=== PATIENT | female | born 1965 | race Caucasian/White ===

== ENCOUNTER 2019-01-06 12:57 | Emergency (ER) | payer MEDICARE, MEDICAID, SELFPAY ==
[2019-01-06 12:59] VITALS: BP 161/96; PULSE 83; RESP 17; TEMP 37.3; O2SAT 96; BMI 32.9
--- NOTE | 2019-01-06 13:21 | RAD_ITS ---
STUDY: X-RAY - ACUTE ABDOMINAL SERIES REASON FOR EXAM: Female, 53 years old. Headaches. Shortness of breath. TECHNIQUE: Single view of the chest. Supine, and erect view(s) of the abdomen were obtained. COMPARISON: None. FINDINGS: The lungs are clear and expanded. Normal size heart. Normal mediastinum and froy. Normal visualized pulmonary arteries. Normal visualized aortic arch and descending thoracic aorta. There is a non-specific bowel gas pattern. Moderate sized hiatal hernia. Normal visualized osseous structures. RAD/Acute Abdomen Inc Chest IMPRESSION: Moderate sized hiatal hernia. Electronically Signed: Franklin Ken, at 15:05 EDT , Service support ,
--- NOTE | 2019-01-06 13:22 | CT_ITS ---
STUDY: CT BRAIN WITHOUT CONTRAST REASON FOR EXAM: Female, 53 years old. One-year history of headaches. RADIATION DOSAGE (If Supplied By Facility): CTDIvol = ( 44.99 ) mGy, DLP = ( 796.11 ) mGycm TECHNIQUE: Transaxial CT imaging of the brain was performed without administration of intravenous contrast material. Individualized dose optimization techniques were used for this CT. COMPARISON: No relevant priors. FINDINGS: Normal soft tissue structures. Normal calvarium. Normal size ventricles and extra-axial spaces for the patient's age. Normal white matter tracts of the cerebral hemispheres. Normal basal ganglia and thalami. Normal brainstem. Normal cerebellum. There is no intracranial hemorrhage. There are no findings of an acute ischemic infarction. Normal visualized paranasal sinuses. CT/Brain/Head without Contrast IMPRESSION: Normal unenhanced CT scan of the brain. Electronically Signed: Franklin Ken, at 15:15 EDT , Service support ,
[2019-01-06] MEDS: 0.9% Normal Saline 1,000 ML 1000 ML IV (13:48)
[2019-01-06] MEDS: Ondansetron 4 MG/2 ML Vial IV (13:49)
[2019-01-06] MEDS: Ketorolac 30 MG/ML Syringe IV (13:49)
[2019-01-06 14:01] LABS: Absolute Lymphocyte Count 2.08 X10^3/ul (0.83-4.51); Absolute Neutrophil Count 7.3 X10^3/uL (2.0-7.7); Basophil# 0.05 X10^3/uL; Basophil% 0.5 % (0-1); Eosinophil# 0.05 X10^3/uL; Eosinophils% 0.5 % (0-5); Hematocrit 41.6 % (37-47); Hemoglobin 13.9 g/dl (12.0-15.0); Lymphocyte # 2.08 X10^3/ul (4.0); Lymphocyte % 20.8 % (19-41); Mean Corp Hgb Conc 33.4 g/gl (32-36); Mean Corpuscular Hgb 27.1 pg (27.0-32.0); Mean Corpuscular Volume 81.1 fL (81-99); Mean Platelet Vol. 10.1 fl (6.2-12.0); Monocyte# 0.51 X10^3/uL; Monocyte% 5.1 % (0-10); Neutrophil # 7.28 X10^3/uL (2.7-7.7); Platelet Count 253 K/mm3 (150-450); RBC Distribution Width CV 12.7 % (11.6-14.6); RBC Distribution Width SD 37.4 fl (35.1-43.9); Red Blood Count 5.13 M/mm3 (4.2-5.4)
[2019-01-06 14:02] LABS: POSITIVE COUNT NO; POSITIVE DIFFERENTIAL NO; POSITIVE MORPHOLOGY NO
[2019-01-06 14:17] LABS: AST(SGOT) 27 U/L (15-37); Alanine Aminotransfer ALT/SGPT 29 U/L (13-56); Albumin, Serum 4.2 g/dL (3.2-5.0); Alkaline Phosphatase 107 U/L (45-117); Anion Gap 6 (5-15); BUN 19 mg/dL (7-18); BUN/Creat Ratio 16.2 RATIO (10-20); Calcium,Total 9.1 mg/dL (8.5-10.1); Chloride 106 mmol/L (98-107); Creatinine, Serum 1.17 mg/dL (0.55-1.02); EST Glomerular Filtration Rate 51 mL/min (>60); Est Glom Filt Rate - Afr Amer 62 mL/min (>60); Estimated Creatinine Clearance 66.19 ml/min; Glucose 87 mg/dL (74-106); Potassium 3.3 mmol/L (3.5-5.1); Protein, Total 8.2 g/dL (6.4-8.2); Sodium Level 138 mmol/L (136-145)
--- NOTE | 2019-01-06 15:21 | ED.VISSUMM ---
- ER Visit Summary Date of Service: 01/06/19 Chief Complaint: Headache History of Present Illness: The patient is a [address] edwards. She reports that she has a headache that began today. It is a dull pain and that is in the occipital. It is 10 out of 10 at worst and 4-10 currently. Is worsened by movement or bending over. Is relieved by Rajni back and body. She has had nausea without vomiting. She does complain of photophobia. She denies any vision changes. No numbness or weakness. Patient reports that she has had a cough for the past 2 weeks that is nonproductive. She denies any fever or chills. She has had upper abdominal pain for a long period of time that is unchanged. She reports has been nauseated, but has not vomited. No diarrhea. No melena or hematochezia. Physical Examination: Vitals: Stable. Afebrile. General: Well-nourished and well-developed. Head: Normocephalic atraumatic. Neck: Supple, no lymphadenopathy. No JVD. Nontender. Cardiovascular: Regular rate and rhythm. No murmurs. Respiratory: No respiratory distress. Clear to auscultation bilaterally. Abdominal: Soft, mild epigastric tenderness to palpation, nondistended, normal bowel sounds. No guarding, rebound, or peritoneal signs. Back: Nontender. Extremities: Nontender, no edema. Skin: Normal color, no rash. Neurologic: Alert and oriented ?3. Cranial nerves II through XII are intact. Normal strength and sensation. Psych: Flat affect. Test Results: Abdominal x-ray shows nonspecific bowel gas pattern with a moderate sized hiatal hernia. CT brain is normal. CBC is more for 7 neutrophils 73. Liver panel is normal. Chem-7 is marked potassium 3.3, BUN 19, creatinine 1.17. Emergency Department Course and Treatment: Patient was treated with Toradol and Zofran. She is resting comfortably. Treatment Plan: Patient be discharged instructions follow up with his primary care physician for further evaluation of her headache. She is also given the name of Dr. Patino, who is articulation officer, for further evaluation and potential treatment of her hiatal hernia. Return to the emergency department for any worsening symptoms. Disposition: To home in improved and stable condition. Impression: 1. Hiatal hernia. 2. Cephalgia. This note was generated with [employer] dictation software. It may contain incorrect words, spelling, and punctuation that were not noted in review of the chart prior to signing ED Disposition - Plan for ED Patient: Disposition: Home or Assisted Living Instructions: What Is a Hiatal Hernia?, ED Cephalgia Unspecified Referrals: Jeanine Akins NP-C [Primary Care Provider] - 3-5 Days if not improving Cali Patino MD [STAFF PHYSICIAN] - As Needed
[2019-01-06 15:30] VITALS: PULSE 87; RESP 17; O2SAT 97
== END 2019-01-06 15:32 | disposition home or self-care (01) ==
LOC: ED 14:10
PROVIDERS: Emergency Provider Emergency Medicine; Family Provider Nurse Practitioner Family; PCP Nurse Practitioner Family
DX: R51 Headache (principal); K44.9 Diaphragmatic hernia without obstruction or gangrene; F31.9 Bipolar disorder, unspecified; Z79.899 Other long term (current) drug therapy; Z72.0 Tobacco use
CPT/HCPCS: 70450; 74022; 80053; 85025; 96361; 96374; 96375; 99284; J7030; A4216; J2405

== ENCOUNTER 2019-01-15 11:07 | Emergency (ER) | payer MEDICARE, MEDICAID, SELFPAY ==
[2019-01-15 11:08] VITALS: BP 146/93; PULSE 97; RESP 16; TEMP 36.8; O2SAT 96; BMI 33.2
--- NOTE | 2019-01-15 11:17 | VDLE_ITS ---
Reason For Study: Pain RLE RIGHT LEFT GSV is normal. CFV is compressible, spontaneous, phasic, CFV is compressible, spontaneous, phasic, competent, and demonstrates normal competent and demonstrates normal augmentation. augmentation. FV is compressible, spontaneous, phasic, competent and demonstrates normal augmentation. POP V is compressible, spontaneous, phasic, competent and demonstrates normal augmentation. T/P Trunk is compressible. PTV is compressible. RT PerV is compressible. Hypoechoic, Non vascular structure noted Rt Pop Fossa measuring 2.32cm x 1.01cm. Procedure Exam performed portable in ED. A preliminary report was called and/or faxed to Dr. House. Interpretation Summary Deep veins of the right lower extremity are patent and compressible segmentally. There is no evidence of right lower extremity deep vein thrombosis. Valvular competence appears intact within the proximal deep venous system on the right . The right greater saphenous vein appears patent and compressible segmentally. A non-vascular, hypoechoic structure is noted in the right popliteal space, measuring 2.32 cm x 1.01 cm. This probably represents a popliteal cyst. Clinical correlation is advised. Ordering Physician: Caleb House Referring Physician: Jeanine Akins Performed By: Brianna Rivas RDCS, RVT
--- NOTE | 2019-01-15 11:37 | ED.DCSUM_ITS ---
- ER Visit Summary Date of Service: 01/15/19 Chief Complaint: Leg swelling History of Present Illness: The patient is a 53 F presents to the emergency department for right lower extremity swelling. The patient states she had a mechanical fall in October. She slipped on ice on her porch. She struck the ba ck of her knee. She states that she is having difficulty with any since. However, over the past 2 weeks, she is noted some swelling of her leg. She denies any chest pain. She denies any dyspnea. She did discuss this with her primary care who sent her in for further evaluation for an ultrasound. The patient is otherwise been in her normal state of health. She denies any fevers or chills. She has no history of blood clot. Physical Examination: Vital signs reviewed General: Well-nourished, well-developed Head: Normocephalic, atraumatic Eyes: Pupils equal and reactive, extraocular muscles intact Neck, supple, no lymphadenopathy Heart: Regular rate and rhythm Respiratory: No distress, clear bilaterally Abdomen: Soft, nontender, nondistended, no peritoneal signs Back: Nontender Extremities: Nontender, no edema, no cords Skin: Normal color no rash Neuro: Alert and oriented, no focal or lateralizing deficits Test Results: [] Emergency Department Course and Treatment: The patient symptoms do seem to be coming more from her knee. However, given her history I did obtain an ultrasound. There is no evidence of DVT. The patient is also on Eliquis so my suspicion for clot is very low. Ultrasound does demonstrate a hypoechoic nonvascular structure in the popliteal fossa that is most consistent with a Lovelace's cyst. She will be placed in an Edmar wrap. She was given a short course of anti-inflammatories. She will be given outpatient orthopedic follow-up as needed. She will be discharged home and is comfortable with this plan of care. Treatment Plan: [] Disposition: Discharge Impression: 1. Right knee strain This note was generated with [employer] dictation software. It may contain incorrect words, spelling, and punctuation that were not noted in review of the chart prior to signing ED Disposition - Plan for ED Patient: Instructions: ED Sprain Knee Prescriptions: Naproxen [Naprosyn] 500 mg PO BID PRN #20 tab Referrals: Tina Ramírez DO [STAFF PHYSICIAN] -
[2019-01-15 12:19] VITALS: BP 141/89; PULSE 78; RESP 19; O2SAT 99
== END 2019-01-15 12:31 | disposition home or self-care (01) ==
PROVIDERS: Emergency Provider Emergency Medicine; Family Provider Internal Medicine; PCP Internal Medicine
DX: S83.91XA Sprain of unspecified site of right knee, initial encounter (principal); W00.9XXA Unspecified fall due to ice and snow, initial encounter; Y93.9 Activity, unspecified; Y92.008 Other place in unspecified non-institutional (private) residence as the place of occurrence of the external cause; Z79.01 Long term (current) use of anticoagulants; Z79.899 Other long term (current) drug therapy
CPT/HCPCS: 93971; 99282

== ENCOUNTER 2019-02-13 19:38 | Emergency (ER) | payer MEDICARE, MEDICAID, SELFPAY ==
[2019-02-13 19:40] VITALS: BP 129/79; PULSE 73; PULSE 75; RESP 18; TEMP 36.3; O2SAT 97; O2SAT 98; BMI 34.2
--- NOTE | 2019-02-13 20:17 | CT_ITS ---
STUDY: CT BRAIN WITHOUT CONTRAST REASON FOR EXAM: Female, 53 years old. Headache and dizziness. RADIATION DOSAGE (If Supplied By Facility): CTDIvol = ( 44.99 ) mGy, DLP = ( 812.98 ) mGycm TECHNIQUE: Transaxial CT imaging of the brain was performed without administration of intravenous contrast material. Multiplanar reformations are submitted for interpretation. Individualized dose optimization techniques were used for this CT. COMPARISON: CT of the head dated January 06, 2019. FINDINGS: Normal soft tissue structures. Normal calvarium. Normal size ventricles and extra-axial spaces for the patient's age. Normal white matter tracts of the cerebral hemispheres. Normal basal ganglia and thalami. Normal brainstem. Normal cerebellum. There is no intracranial hemorrhage. There are no findings of an acute ischemic infarction. Normal visualized paranasal sinuses. CT/Brain/Head without Contrast IMPRESSION: Normal unenhanced CT scan of the brain. Electronically Signed: Yuly Molina MD at 20:48 EDT , Service support ,
--- NOTE | 2019-02-13 21:56 | ED.DCSUM_ITS ---
- ER Visit Summary Date of Service: 02/13/19 Chief Complaint: Head pain History of Present Illness: The patient is a 53 F who states for the past several days she has had frontal facial pressure. She also has experienced some ear pressure and sharp pain occasionally feels like it goes from the left ear through her brain to the right. She notes it also generalized headache. She denies any known trauma to the head. She is on Eliquis for prior DVT and states she has not missed any doses. She has some clear rhinorrhea. She notes that she has been sneezing. She is on Singulair for asthma well as using a nasal spray for allergies. Physical Examination: Afebrile vital signs stable Gen: Well-nourished well-developed Head: Normocephalic atraumatic Eyes: Perrl EOMI ENT: TMs clear clear rhinorrhea bluish turbinates moist mucous membranes Neck: Supple no lymphadenopathy no JVD nontender CVS: Regular rate rhythm no murmurs normal S1-S2 Respiratory: No distress clear to auscultation bilaterally chest nontender Abdomen: Soft nontender nondistended normal bowel sounds no masses Back: Nontender Extremity: Nontender no edema Skin: Normal color no rash Neuro: alert orientated ?3 CN II-XII intact normal strength sensation Psych: Normal affect normal mood Test Results: CT brain negative Emergency Department Course and Treatment: I suspect this is probably a sinusitis related to environment. Currently heavy, pollen counts. In addition to her nasal spray will also add in Zyrtec. She is to follow-up with her doctor if not improving Impression: 1. Sinusitis This note was generated with [employer] dictation software. It may contain incorrect words, spelling, and punctuation that were not noted in review of the chart prior to signing ED Disposition - Plan for ED Patient: Disposition: Home or Assisted Living Instructions: ED Sinusitis No Abx Prescriptions: Cetirizine HCl [Zyrtec] 10 mg PO DAILY #14 cap Referrals: Dylan Madrigal MD [Primary Care Provider] - 1 Week if not improving
[2019-02-13 22:10] VITALS: BP 124/60; PULSE 62; RESP 18; O2SAT 94
== END 2019-02-13 22:10 | disposition home or self-care (01) ==
PROVIDERS: Emergency Provider Emergency Medicine; Family Provider Internal Medicine; PCP Internal Medicine
DX: J32.9 Chronic sinusitis, unspecified (principal); J45.909 Unspecified asthma, uncomplicated; F31.9 Bipolar disorder, unspecified; K21.9 Gastro-esophageal reflux disease without esophagitis; Z86.718 Personal history of other venous thrombosis and embolism; Z79.01 Long term (current) use of anticoagulants; Z79.899 Other long term (current) drug therapy; Z72.0 Tobacco use
CPT/HCPCS: 70450; 99282

== ENCOUNTER 2019-03-09 16:50 | Emergency (ER) | payer MEDICARE, MEDICAID, SELFPAY ==
[2019-03-09 16:50] VITALS: BP 141/87; PULSE 82; RESP 18; TEMP 36.6; O2SAT 96; BMI 32.8
--- NOTE | 2019-03-09 17:34 | CT_ITS ---
STUDY: CT BRAIN WITHOUT CONTRAST REASON FOR EXAM: Female, 53 years old. Headache RADIATION DOSAGE (If Supplied By Facility): CTDIvol = ( 44.99 ) mGy, DLP = ( 779.24 ) mGycm TECHNIQUE: Transaxial CT imaging of the brain was performed without administration of intravenous contrast material. Individualized dose optimization techniques were used for this CT. COMPARISON: 01/06/2019, 02/13/2019. FINDINGS: Normal soft tissue structures. Normal calvarium. No definite change, but there is suggestion of very subtle low-attenuation in the left occipital lobe when compared to the right as seen on axial image 16 and coronal image 73. Again, the appearance is also present on prior studies and is unlikely to be acute but recommend further evaluation with contrast-enhanced MRI. Also unchanged previous exams is the possibility of mild diffuse chronic white matter disease which could also be evaluated with MRI. Normal size ventricles and extra-axial spaces for the patient's age. Normal basal ganglia and thalami. Normal brainstem. Normal cerebellum. There is no intracranial hemorrhage. There are no findings of an acute ischemic infarction. Normal visualized paranasal sinuses. CT/Brain/Head without Contrast IMPRESSION: No definite change or acute abnormality, but there may be chronic white matter disease that is unusual for age and may be more pronounced in the left occipital lobe, stable but suggest further evaluation with MRI. Electronically Signed: Francisco Ray MD at 18:18 EDT , Service support ,
[2019-03-09] MEDS: Ondansetron 4 MG/2 ML Vial IV (19:02)
[2019-03-09] MEDS: Ketorolac 15 MG/ML Vial IV (19:02)
[2019-03-09 19:05] VITALS: BP 142/85; PULSE 62; RESP 16; O2SAT 99
--- NOTE | 2019-03-09 19:36 | ED.DEP ---
ED Disposition - Plan for ED Patient: Instructions: ED Cephalgia Unspecified Referrals: Dylan Madrigal MD [Primary Care Provider] -
--- NOTE | 2019-03-09 19:46 | ED.DCSUM_ITS ---
- ER Visit Summary Date of Service: 03/09/19 Chief Complaint: Headache History of Present Illness: The patient is a 53 F presenting with headache. Patient has had headache for several months. She has had intermittent gradual onset headaches. She states she feels like her body is deflated and she is floating in the air. She has history of traumatic brain injury, bipolar disorder, and protein S deficiency. She is on Eliquis. She denies trauma. Denies fever. Denies numbness or weakness. Denies other complaints. She denies suicidal ideation. Physical Examination: Vitals are stable. Patient is afebrile. Alert no acute distress. HEENT exam is unremarkable. Neck is supple. No meningismus Lungs are clear and equal bilaterally. Heart is regular rate and rhythm. Abdomen is soft nontender nondistended. Extremities are unremarkable. Skin is warm and dry. No focal neurologic deficit. Remainder of exam is unremarkable. Emergency Department Course and Treatment: CT head shows no definite change or acute abnormality, but there may be chronic white matter disease that is unusual for age and may be more pronounced in the left occipital lobe, stable but suggest further evaluation with MRI. Patient was given Toradol IV. On reevaluation, she states her headache has resolved. Patient is advised of CT findings and she will follow-up with Dr. Madrigal. She is advised to return to ED for worsening complaints. Disposition: Discharge home Impression: Headache, resolved This note was generated with [employer] dictation software. It may contain incorrect words, spelling, and punctuation that were not noted in review of the chart prior to signing ED Disposition - Plan for ED Patient: Instructions: ED Cephalgia Unspecified Referrals: Dylan Madrigal MD [Primary Care Provider] -
[2019-03-09 19:59] VITALS: BP 121/81; PULSE 67; RESP 16; O2SAT 97
== END 2019-03-09 20:00 | disposition home or self-care (01) ==
PROVIDERS: Emergency Provider Emergency Medicine; Family Provider Internal Medicine; PCP Internal Medicine
DX: R51 Headache (principal); F31.9 Bipolar disorder, unspecified; D68.59 Other primary thrombophilia; Z87.820 Personal history of traumatic brain injury; Z79.01 Long term (current) use of anticoagulants; Z79.899 Other long term (current) drug therapy
CPT/HCPCS: 70450; 96374; 96375; 99283; A4216; J2405

== ENCOUNTER 2019-03-17 12:23 | Emergency (ER) | payer MEDICARE, MEDICAID, SELFPAY ==
[2019-03-17] VITALS (9 sets, daily range): BP systolic 128–160; BP diastolic 80–91; PULSE 80–95; RESP 15–20; TEMP 36.8; O2SAT 97–100; BMI 33.3
--- NOTE | 2019-03-17 12:51 | ED.VISSUMM ---
- ER Visit Summary Date of Service: 03/17/19 Chief Complaint: Body shutting down History of Present Illness: The patient is a 53 F and it is difficult to obtain history because of a suspected mental health issue. It sounds like the patient thinks her body is shutting down. She said this has been an ongoing issue. She said she has 100s of sensors that were implanted in her brain and body when she was a child. She says she is able to monitor them with a [employer] pacer interrogator device. She also makes some comments about bipolar disorder. She is denying any suicidal or homicidal thoughts. Nothing seemed to bring this on or make it worse. She has had multiple visits to the ED over the last couple months for various complaints. Physical Examination: Afebrile vital signs unremarkable. Thoughts are disorganized. Thought content includes delusions and paranoia. Patient denies suicidal or homicidal thoughts. She is oriented to person and place. Head and neck unremarkable. HEENT exam unremarkable. Heart regular. Lungs clear. Abdomen soft. Skin intact. Test Results: Labs and urine testing are pending. Will check tox and alcohol levels. Emergency Department Course and Treatment: Patient presents with paranoid and delusional thoughts. She is disorganized and disordered. I believe she will need inpatient care. I checked screening labs and testing. Patient will have psych precautions and will be evaluated by crisis. Work-up was all fairly unremarkable. She has signs of urinary tract infection and was treated with Macrobid. While I do believe she needs treatment for UTI, she is not septic. I do not believe her behavior or mental status changes are a result of the UTI. Crisis is evaluating the patient. [place] slip was completed by me. Patient is medically cleared for care at a psychiatric facility. Treatment Plan: As above Disposition: Transfer pending crisis evaluation Impression: 1. Psychosis 2. UTI This note was generated with [employer] dictation software. It may contain incorrect words, spelling, and punctuation that were not noted in review of the chart prior to signing ED Disposition - Plan for ED Patient: Referrals: Dylan Madrigal MD [Primary Care Provider] -
--- NOTE | 2019-03-17 12:54 | ED.DCSUM_ITS ---
- ER Visit Summary Date of Service: 03/17/19 Chief Complaint: Body shutting down History of Present Illness: The patient is a 53 F and it is difficult to obtain history because of a suspected mental health issue. It sounds like the patient thinks her body is shutting down. She said this has been an ongoing issue. She said she has 100s of sensors that were implanted in her brain and body when she was a child. She says she is able to monitor them with a [employer] pacer interrogator device. She also makes some comments about bipolar disorder. She is denying any suicidal or homicidal thoughts. Nothing seemed to bring this on or make it worse. She has had multiple visits to the ED over the last couple months for various complaints. Physical Examination: Afebrile vital signs unremarkable. Thoughts are disorganized. Thought content includes delusions and paranoia. Patient denies suicidal or homicidal thoughts. She is oriented to person and place. Head and neck unremarkable. HEENT exam unremarkable. Heart regular. Lungs clear. Abdomen soft. Skin intact. Test Results: Labs and urine testing are pending. Will check tox and alcohol levels. Emergency Department Course and Treatment: Patient presents with paranoid and delusional thoughts. She is disorganized and disordered. I believe she will need inpatient care. I checked screening labs and testing. Patient will have psych precautions and will be evaluated by crisis. Work-up was all fairly unremarkable. She has signs of urinary tract infection and was treated with Macrobid. While I do believe she needs treatment for UTI, she is not septic. I do not believe her behavior or mental status changes are a result of the UTI. Crisis is evaluating the patient. [place] slip was completed by me. Patient is medically cleared for care at a psychiatric facility. Treatment Plan: As above Disposition: Transfer pending crisis evaluation Impression: 1. Psychosis 2. UTI This note was generated with [employer] dictation software. It may contain incorrect words, spelling, and punctuation that were not noted in review of the chart prior to signing ED Disposition - Plan for ED Patient: Referrals: Dylan Madrigal MD [Primary Care Provider] -
--- NOTE | 2019-03-17 13:16 | ED.RN ---
PT STATES I HAVE BODY STIMULATORS ALL OVER INSIDE HER BODY AND THEY AREN'T WORKING SO MY ORGANS ARE SHUTTING DOWN.
--- NOTE | 2019-03-17 13:23 | CM.ED ---
SOCIAL WORK DISCUSSED CASE WITH NURSING AND DR. HERRERA. PATIENT TO BE EVALUATED BY CRISIS ONCE MEDICALLY CLEARED. CALL TO CRISIS TO UPDATE ON PATIENT, SPOKE WITH CHARISSE. CRISIS TO EVAL ONCE LABS ARE BACK AND PATIENT IS MEDICALLY CLEARED. DALY CHAMBERS, RECOVERY MANAGER, AUTO BODY SERVICE MECHANIC.
[2019-03-17 13:28] LABS: Bacteria 0 SEEN /hpf (None Seen); Mucous, Urine 0 SEEN /hpf (<or=2+); Red Blood Cells-Urine 0 SEEN /hpf (0-5)
[2019-03-17 13:29] LABS: Color, Urine Yellow (Yellow); Glucose, Dipstick Normal (Normal); Ketone-Dipstick Negative (Negative); Leukocyte Esterase-Dipstick 100 /ul (Negative); Nitrite-Dipstick Negative (Negative); Occult Blood-Urine Negative /ul (Negative); Protein-Dipstick Negative (Negative); Urine Bilirubin Dipstick Negative (Negative); Urine Clarity Sl. Cloudy (Clear); Urine Urobilinogen Normal (Normal)
[2019-03-17 13:37] LABS: Squamous Epithelial Cells - UA 0-5 SEEN /hpf (5-10); White Blood Cells 10-25 SEEN /hpf (0-5)
[2019-03-17 14:06] LABS: Amphetamine Urine VISTA NEGATIVE (<1000 ng/mL); Barbiturate Urine VISTA NEGATIVE (< 200 ng/mL); Benzodiazepine Urine VISTA NEGATIVE (< 200 ng/mL); Cocaine Urine VISTA NEGATIVE (< 300 ng/mL); Ecstacy Urine VISTA NEGATIVE (< 500 ng/mL); Methadone Urine VISTA NEGATIVE (< 300 ng/mL); PCP Urine VISTA NEGATIVE (< 25 ng/mL); THC Urine VISTA NEGATIVE (< 50 ng/mL); Vista UDS pH Range 5
[2019-03-17 14:22] LABS: Absolute Lymphocyte Count 1.84 X10^3/ul (0.83-4.51); Absolute Neutrophil Count 5.6 X10^3/uL (2.0-7.7); Basophil# 0.04 X10^3/uL; Basophil% 0.5 % (0-1); Eosinophil# 0.09 X10^3/uL; Eosinophils% 1.1 % (0-5); Hematocrit 43.5 % (37-47); Hemoglobin 14.2 g/dl (12.0-15.0); Lymphocyte # 1.84 X10^3/ul (4.0); Lymphocyte % 22.8 % (19-41); Mean Corp Hgb Conc 32.6 g/gl (32-36); Mean Corpuscular Hgb 26.2 pg (27.0-32.0); Mean Corpuscular Volume 80.3 fL (81-99); Mean Platelet Vol. 9.7 fl (6.2-12.0); Monocyte# 0.45 X10^3/uL; Monocyte% 5.6 % (0-10); Neutrophil # 5.63 X10^3/uL (2.7-7.7); Neutrophil % 69.8 % (47-70); Platelet Count 249 K/mm3 (150-450); RBC Distribution Width CV 14.3 % (11.6-14.6); RBC Distribution Width SD 41.6 fl (35.1-43.9); Red Blood Count 5.42 M/mm3 (4.2-5.4); White Blood Count 8.1 K/mm3 (4.4-11.0)
[2019-03-17 14:23] LABS: POSITIVE COUNT NO; POSITIVE DIFFERENTIAL NO; POSITIVE MORPHOLOGY NO
[2019-03-17] MEDS: Nitrofurantoin Macrocrystals 100 MG Capsule PO (14:28)
[2019-03-17 14:34] LABS: Internal QC Validated? YES +Cl - CLEAR BKGD; Pregnancy, Serum, hCG Quali. NEGATIVE Negative
[2019-03-17 14:36] LABS: Anion Gap 8 (5-15); BUN 17 mg/dL (7-18); BUN/Creat Ratio 15.6 RATIO (10-20); Calcium,Total 9.2 mg/dL (8.5-10.1); Chloride 103 mmol/L (98-107); Creatinine, Serum 1.09 mg/dL (0.55-1.02); EST Glomerular Filtration Rate 56 mL/min (>60); Est Glom Filt Rate - Afr Amer 67 mL/min (>60); Estimated Creatinine Clearance 71.05 ml/min; Glucose 94 mg/dL (74-106); Potassium 3.7 mmol/L (3.5-5.1); Sodium Level 140 mmol/L (136-145)
[2019-03-17 15:06] LABS: Alcohol, Blood (Medical)-Serum < 3.0 mg/dL
--- NOTE | 2019-03-17 15:47 | CM.ED ---
SOCIAL WORK CHARISSE FROM CRISIS HERE AND ASSESSED PATIENT. CHARISSE PROVIDED WITH COPY OF CLINICAL DOCUMENTATION. ANTICIPATE INPATIENT PSYCH HOSPITALIZATION. DALY CHAMBERS, NEWS CLERK, BILLET WORKER.
--- NOTE | 2019-03-17 16:01 | ED.DEP ---
ED Disposition - Plan for ED Patient: Prescriptions: Nitrofurantoin Macrocrystals [Macrobid] 100 mg PO Q12 #10 cap Referrals: Dylan Madrigal MD [Primary Care Provider] -
[2019-03-17] MEDS: Ziprasidone IM 20 MG/ML VIAL IM (19:00)
--- NOTE | 2019-03-17 19:22 | ED.RN ---
CALLED [facility] TO GIVE REPORT 3X AND EACH TIME THE SEALS ENGRAVER LADY PATCHED ME THROUGH TO THE FLOOR AND THE PHONE RANG FOR 10MIN, THE FINAL TIME I CALLED THE AIRCRAFT STRUCTURE MECHANIC SAID TO SEND THE PT WITHOUT GIVING REPORT SINCE THEY WEREN'T ANSWERING.
[2019-03-17] MEDS: LORazepam 2 MG/ML Syringe 1 MG IM (19:52)
--- NOTE | 2019-03-17 20:28 | ED.RN ---
RESTRAINTS ENDED AT 1999 WHEN EMS TOOK OVER CARE OF THE PT FOR TRANSPORT, DOCUMENTED ON THE PAPER RESTRAINTS DOCUMENTATION.
== END 2019-03-17 20:30 ==
PROVIDERS: Emergency Medicine; Emergency Provider Emergency Medicine; Family Provider Internal Medicine; PCP Internal Medicine
DX: F29 Unspecified psychosis not due to a substance or known physiological condition (principal); F31.9 Bipolar disorder, unspecified; N39.0 Urinary tract infection, site not specified; Z79.899 Other long term (current) drug therapy
CPT/HCPCS: 80048; 80307; 80320; 81001; 84703; 85025; 96372; 99285; G0480; J3486

== ENCOUNTER → 2024-02-06 | Outpatient (CLI) | payer MEDICARE, MEDICAID, SELFPAY ==
--- NOTE | 2024-02-06 12:42 | CT_ITS ---
STUDY: CT CHEST WITH CONTRAST REASON FOR EXAM: Female, 58 years old. CHEST PAIN limited chest over read ONLY RADIATION DOSAGE (If Supplied By Facility): CTDIvol = ( 110.3 ) mGy, DLP = ( 2361 ) mGycm TECHNIQUE: Transaxial imaging was performed following intravenous administration of IV 75mL Isovue-370. Individualized dose optimization techniques were used for this CT. COMPARISON: No relevant priors. FINDINGS: CHEST Mild degree of increased markings in the left lower lobe suggestive of atelectasis and/or scarring. Mild degree of increased markings also seen in the posterior lingular segment of the left upper lobe. There is no demonstrated pleural abnormality. Normal heart and pericardium. No coronary artery calcification is seen. Normal mediastinum. Normal hilar regions. Normal unenhanced pulmonary arteries. Normal aorta arch and descending thoracic aorta. Normal osseous structures. Large hiatal hernia. CT/Limited Chest CT Cardiac Only IMPRESSION: No coronary artery calcification is seen. Increased markings at the left lung base as described suggestive of scarring and/or atelectasis. Electronically Signed: Franklin Ken MD at 9:05 EDT ,
[2024-02-06 13:16] VITALS: BP 125/89; PULSE 68; RESP 16; O2SAT 96; BMI 38.2
[2024-02-06 13:40] VITALS: PULSE 66
[2024-02-06] MEDS: Nitroglycerin SL (ED/IMG/CATH) 0.4 MG TABLET SL (13:40)
[2024-02-06 13:49] VITALS: BP 153/91; PULSE 85; RESP 18; O2SAT 95
--- NOTE | 2024-02-07 08:52 | CCTA.WCONT ---
CCTA w/Cont Coronary Arteries Date of Study:: 02/06/24 Chest pain Coronary Calcium Scoring: High-resolution Computed Tomographic imaging of the chest was performed on [02/06/2024], with particular attention paid to the coronary arteries. Intravenous contrast agent was administered per protocol and images reconstructed and displayed. LEFT MAIN CORONARY ARTERY: This arose from the left coronary cusp and bifurcating to left anterior descending artery and left circumflex artery [] LEFT ANTERIOR DESCENDING CORONARY ARTERY: Medium size vessel with no significant atherosclerotic plaquing [] LEFT CIRCUMFLEX CORONARY ARTERY: Nondominant but medium size vessel with no significant atherosclerotic plaquing. 2 obtuse marginal branches and an AV groove branch were noted. [] RIGHT CORONARY ARTERY: Large dominant artery arising from the right coronary cusp and terminating with the posterior descending artery. No significant atherosclerotic plaquing was noted. CORONARY CALCIUM SCORE: Not performed Conclusion: No significant atherosclerotic plaquing noted. []
== END | disposition home or self-care (01) ==
LOC: CT 12:35
PROVIDERS: PCP Nurse Practitioner Primary Care; Referring Provider Internal Medicine Cardiovascular Disease; Visit Provider Internal Medicine Cardiovascular Disease
DX: Z01.810 Encounter for preprocedural cardiovascular examination (principal); R07.9 Chest pain, unspecified
CPT/HCPCS: 75574; 76380; Q9967